=== PATIENT | female | born 1985 | race Caucasian/White ===

== ENCOUNTER 2019-09-17 11:58 | Emergency (ER) | payer BC, SELFPAY ==
--- NOTE | 2019-09-17 13:20 | RAD ---
RADIOGRAPH LEFT LEG TIBIA-FIBULA 2VIEWS: DATE: 09/17/2019 HISTORY: 33-year-old female with acute, traumatic leg pain from fall FINDINGS: There is no evidence of fracture, periostitis, permeative lesion, osteolytic lesion, or osteoblastic lesion. No radiopaque foreign body, abnormal soft tissue calcification, or subcutaneous emphysema is identified. IMPRESSION: Normal
--- NOTE | 2019-09-17 13:21 | RAD ---
RADIOGRAPH LEFT ANKLE 3 VIEWS: DATE: 09/17/2019 HISTORY: 33-year-old female with acute traumatic left ankle pain FINDINGS: Ankle mortise is congruent. There is no evidence of fracture. There is no subluxation or dislocation. There are no degenerative changes. Talar dome is maintained. IMPRESSION: No osseous abnormality.
--- NOTE | 2019-09-17 13:23 | RAD ---
RADIOGRAPH LEFT FOOT 3VIEWS: DATE: 09/17/2019 HISTORY: 33-year-old female with acute traumatic left foot pain from fall FINDINGS: There is no evidence of fracture or dislocation. There is no evidence of periostitis, permeative lesi on, osteolytic lesion, or osteoblastic lesion. The joint spaces are maintained without erosions or significant osteophytes. IMPRESSION: Normal
== END 2019-09-17 13:20 | disposition home or self-care (01) ==
LOC: NAV ERS 11:58
DX: S93.412A Sprain of calcaneofibular ligament of left ankle, initial encounter (principal); S90.32XA Contusion of left foot, initial encounter; S80.12XA Contusion of left lower leg, initial encounter; J45.909 Unspecified asthma, uncomplicated; Z79.899 Other long term (current) drug therapy; X50.1XXA Overexertion from prolonged static or awkward postures, initial encounter